=== PATIENT | female | born 1950 | race Caucasian/White ===

== ENCOUNTER 2024-09-07 12:08 | Emergency (ER) | payer MEDICARE, OTHER ==
[2024-09-07 12:16] VITALS: TEMP 98.8
--- NOTE | 2024-09-07 12:34 | ED ---
General Adult HPI - General Chief complaint: Anxiety Stated complaint: "Everything and anything" Time Seen by Provider: 09/07/24 12:15 Source: patient, EMS Mode of arrival: EMS Limitations: no limitations - History of Present Illness Initial comments: Patient is a 73-year-old female presenting to the emergency department for "everything and anything ". Patient states she has not been feeling well for few days. Patient has been having cramps of her legs. Patient states that maybe a little bit swollen. Patient has pain all over. Patient is tearful. Patient is concerned because of numbness and tingling all over. Patient also has concerns that they are changing her medications. - Related Data Previous Rx's Medication Instructions Recorded Cyclobenzaprine [Flexeril] 10 mg PO TID PRN #12 tablet 09/07/24 Allergies Allergy/AdvReac Type Severity Reaction Status Date / Time Sulfa (Sulfonamide AdvReac Rash/Hives Verified 09/07/24 12:18 Antibiotics) Review of Systems ROS Statement: Those systems with pertinent positive or pertinent negative responses have been documented in the HPI. ROS Other: All systems not noted in ROS Statement are negative. Constitutional: Denies: fever Eyes: Denies: eye pain Respiratory: Reports: dyspnea Musculoskeletal: Reports: as per HPI ( pain everywhere) Psychiatric: Reports: anxiety Past Medical History Past Medical History: Hypertension Past Surgical History: Orthopedic Surgery Past Psychological History: Anxiety Smoking Status: Never smoker Past Alcohol Use History: None Reported Past Drug Use History: None Reported General Exam Limitations: no limitations General appearance: alert, anxious Head exam: Present: normocephalic Eye exam: Present: normal appearance Neck exam: Present: normal inspection Respiratory exam: Present: normal lung sounds bilaterally Cardiovascular Exam: Present: regular rate, normal rhythm GI/Abdominal exam: Present: soft. Absent: tenderness Extremities exam: Present: pedal edema. Absent: calf tenderness Neurological exam: Present: alert, oriented X3. Absent: motor sensory deficit Psychiatric exam: Present: anxious Skin exam: Present: normal color Course Vital Signs 09/07/24 09/07/24 09/07/24 12:12 12:18 12:42 Temperature 98.8 F Pulse Rate 68 57 L Respiratory 18 26 H 18 Rate Blood Pressure 190/103 182/89 O2 Sat by Pulse 98 99 Oximetry 09/07/24 14:58 Temperature Pulse Rate 59 L Respiratory 16 Rate Blood Pressure 184/83 O2 Sat by Pulse 99 Oximetry EKG Findings - EKG Results: EKG: interpreted by ERMD, sinus rhythm, normal axis, normal QRS, normal ST/T EKG shows: bradycardia Medical Decision Making - Medical Decision Making Was pt. sent in by a medical professional or institution (, RAFAEL, PUMPER GAUGER APPRENTICE, urgent care, hospital, or halfway...) When possible be specific @ -No Did you speak to anyone other than the patient for history (EMS, parent, family, police, friend...)? What history was obtained from this source @ -No Did you review nursing and triage notes (agree or disagree)? Why? @ -I reviewed and agree with nursing and triage notes Were old charts reviewed (outside hosp., previous admission, EMS record, old EKG, old radiological studies, urgent care reports/EKG's, halfway records)? Report findings @ -No old charts were reviewed Differential Diagnosis (chest pain, altered mental status, abdominal pain women, abdominal pain men, vaginal bleeding, weakness, fever, dyspnea, syncope, headache, dizziness, GI bleed, back pain, seizure, CVA, palpatations, mental health, musculoskeletal)? @ -Differential Dyspnea: Coronary syndrome, arrhythmia, tamponade, asthma, COPD, pulmonary embolism, pneumonia, pneumothorax, pulmonary effusion, anaphylaxis, diabetic ketoacidosis, flailed chest, pulmonary contusion, diaphragmatic rupture, anemia, neuromuscular, this is not meant to be an all-inclusive list. EKG interpreted by me (3pts min.). @ -As above X-rays interpreted by me (1pt min.). @ -Chest x-ray shows possibly enlarged lymph nodes CT interpreted by me (1pt min.). @ -CT of the chest without acute abnormality. No pulmonary embolism U/S interpreted by me (1pt. min.). @ -Ultrasound negative for DVT What testing was considered but not performed or refused? (CT, X-rays, U/S, labs)? Why? @ -None What meds were considered but not given or refused? Why? @ -None Did you discuss the management of the patient with other professionals (professionals i.e. RAFAEL Mckeon, PUMPER GAUGER APPRENTICE, lab, RT, psych nurse, social sciences lecturer, clinical data abstractor, teacher, precinct commanding officer, medical case worker)? Give summary @ -No Was smoking cessation discussed for >3mins.? @ -No Was critical care preformed (if so, how long)? @ -No Were there social determinants of health that impacted care today? How? (Homelessness, low income, unemployed, alcoholism, drug addiction, trans portation, low edu. Level, literacy, decrease access to med. care, correction, rehab)? @ -No Was there de-escalation of care discussed even if they declined (Discuss DNR or withdrawal of care, Hospice)? DNR status @ -No What co-morbidities impacted this encounter? (DM, HTN, Smoking, COPD, CAD, Cancer, CVA, ARF, Chemo, Hep., AIDS, mental health diagnosis, sleep apnea, morbid obesity)? @ -None Was patient admitted / discharged? Hospital course, mention meds given and route, prescriptions, significant lab abnormalities, going to OR and other pertinent info. @ -Patient presents with multiple complaints. Patient has difficulty describing her complaints.. Patient mostly complains of cramping and tingling of her legs. Evaluation unremarkable. Patient symptom-free with Ativan except still feels anxious. Patient requests Ativan to take home with her and is receptive to muscle relaxer as well. Patient is updated on results and need for close follow-up. Undiagnosed new problem with uncertain prognosis? @ -No Drug Therapy requiring intensive monitoring for toxicity (Heparin, Nitro, Insulin, Cardizem)? @ -No Were any procedures done? @ -No Diagnosis/symptom? @ -Leg cramping Acute, or Chronic, or Acute on Chronic? @ -Acute Uncomplicated (without systemic symptoms) or Complicated (systemic symptoms)? @ -Complicated with anxiety Side effects of treatment? @ -No Exacerbation, Progression, or Severe Exacerbation? @ -No Poses a threat to life or bodily function? How? (Chest pain, [place], [place], pneumonia, PE, COPD, DKA, ARF, appy, cholecystitis, CVA, Diverticulitis, Homicidal, Suicidal, threat to staff... and all critical care pts) @ -No - Lab Data Result diagrams: 09/07/24 12:29 09/07/24 12:32 Lab Results 09/07/24 09/07/24 09/07/24 Range/Units 12:29 12:29 12:32 WBC 8.51 (4.50-10.00) 10*3/uL RBC 3.98 L (4.10-5.20) 10*6/uL Hgb 12.8 (12.0-15.0) g/dL Hct 37.4 (37.2-46.3) % MCV 94.0 (80.0-97.0) fL MCH 32.2 H (27.0-32.0) pg MCHC 34.2 (32.0-37.0) g/dL Plt Count 158 (140-440) 10*3/uL MPV 9.4 L (9.5-12.2) fL Immature Gran % (Auto) 0.4 % Neutrophils % 71.2 % Lymphocytes % 19.7 % Monocytes % 7.6 % Eosinophils % 0.9 % Basophils % 0.2 % Immature Gran # 0.03 (0.00-0.04) 10*3/uL Neutrophils # 6.05 (1.80-7.70) 10*3/uL Lymphocytes # 1.68 (0.90-5.00) 10*3/uL Monocytes # 0.65 (0.20-1.00) 10*3/uL Eosinophils # 0.08 (0.04-0.35) 10*3/uL Basophils # 0.02 (0.00-0.10) 10*3/uL PT 10.8 (10.0-12.5) sec INR 1.0 (<1.2) APTT 23.7 (22.0-30.0) sec D-Dimer 1.26 H (<0.60) mg/L FEU Sodium 142 (137-145) mmol/L Potassium 3.7 (3.5-5.1) mmol/L Chloride 110 H (98-107) mmol/L Carbon Dioxide 22 (22-30) mmol/L Anion Gap 10 mmol/L BUN 22 H (7-17) mg/dL Creatinine 1.02 (0.52-1.04) mg/dL Est GFR (CKD-EPI)AfAm 63 (>60 ml/min/1.73 sqM) Est GFR (CKD-EPI)NonAf 55 (>60 ml/min/1.73 sqM) Glucose 94 (74-99) mg/dL Plasma Lactic Acid Raghav (0.7-2.0) mmol/L Calcium 10.3 H (8.4-10.2) mg/dL Magnesium 2.1 (1.6-2.3) mg/dL Total Bilirubin 0.7 (0.2-1.3) mg/dL AST 51 H (14-36) U/L ALT 34 (4-34) U/L Alkaline Phosphatase 78 (38-126) U/L Troponin I (0.000-0.034) ng/mL NT-Pro-B Natriuret Pep 161 pg/mL Total Protein 7.5 (6.3-8.2) g/dL Albumin 4.4 (3.5-5.0) g/dL 09/07/24 09/07/24 Range/Units 12:32 12:39 WBC (4.50-10.00) 10*3/uL RBC (4.10-5.20) 10*6/uL Hgb (12.0-15.0) g/dL Hct (37.2-46.3) % MCV (80.0-97.0) fL MCH (27.0-32.0) pg MCHC (32.0-37.0) g/dL Plt Count (140-440) 10*3/uL MPV (9.5-12.2) fL Immature Gran % (Auto) % Neutrophils % % Lymphocytes % % Monocytes % % Eosinophils % % Basophils % % Immature Gran # (0.00-0.04) 10*3/uL Neutrophils # (1.80-7.70) 10*3/uL Lymphocytes # (0.90-5.00) 10*3/uL Monocytes # (0.20-1.00) 10*3/uL Eosinophils # (0.04-0.35) 10*3/uL Basophils # (0.00-0.10) 10*3/uL PT (10.0-12.5) sec INR (<1.2) APTT (22.0-30.0) sec D-Dimer (<0.60) mg/L FEU Sodium (137-145) mmol/L Potassium (3.5-5.1) mmol/L Chloride (98-107) mmol/L Carbon Dioxide (22-30) mmol/L Anion Gap mmol/L BUN (7-17) mg/dL Creatinine (0.52-1.04) mg/dL Est GFR (CKD-EPI)AfAm (>60 ml/min/1.73 sqM) Est GFR (CKD-EPI)NonAf (>60 ml/min/1.73 sqM) Glucose (74-99) mg/dL Plasma Lactic Acid Raghav 1.6 (0.7-2.0) mmol/L Calcium (8.4-10.2) mg/dL Magnesium (1.6-2.3) mg/dL Total Bilirubin (0.2-1.3) mg/dL AST (14-36) U/L ALT (4-34) U/L Alkaline Phosphatase (38-126) U/L Troponin I <0.012 (0.000-0.034) ng/mL NT-Pro-B Natriuret Pep pg/mL Total Protein (6.3-8.2) g/dL Albumin (3.5-5.0) g/dL Disposition Clinical Impression: Leg cramps Disposition: HOME SELF-CARE Condition: Stable Instructions (If sedation given, give patient instructions): Generalized Anxiety Disorder (ED), Leg Cramps (ED) Additional Instructions: Please do follow-up with your primary care physician in the next day or 2 for recheck. Please also follow-up with your psychiatrist in the next day or 2 for recheck. Ativan provided you to take home. Please cut this in half and do not take more than one half every 12 hours. Prescription for muscle laxer sent to pharmacy. Prescriptions: Cyclobenzaprine [Flexeril] 10 mg PO TID PRN #12 tablet PRN Reason: Pain Is patient prescribed a controlled substance at d/c from ED?: No Referrals: Darrel Rios [Primary Care Provider] - 1-2 days Time of Disposition: 15:25
[2024-09-07 12:39] LABS: Basophils # (A) 0.02 10*3/uL (0.00-0.10); Basophils % (A) 0.2 %; Eosinophils # (A) 0.08 10*3/uL (0.04-0.35); Eosinophils % (A) 0.9 %; HCT 37.4 % (37.2-46.3); HGB 12.8 g/dL (12.0-15.0); Lymphocytes # (A) 1.68 10*3/uL (0.90-5.00); Lymphocytes % (A) 19.7 %; MCH 32.2 pg (27.0-32.0); MCHC 34.2 g/dL (32.0-37.0); Mean Platelet Volume 9.4 fL (9.5-12.2); Monocytes # (A) 0.65 10*3/uL (0.20-1.00); Monocytes % (A) 7.6 %; Neutrophils # (A) 6.05 10*3/uL (1.80-7.70); Neutrophils % (A) 71.2 %; Platelet Count 158 10*3/uL (140-440); RBC 3.98 10*6/uL (4.10-5.20); RDW 12.5 % (11.5-14.5); WBC 8.51 10*3/uL (4.50-10.00)
[2024-09-07] MEDS: LORazepam 1 MG/0.5 ML VIAL IV STA (12:40)
[2024-09-07 12:53] LABS: ALT 34 U/L (4-34); AST 51 U/L (14-36); African American GFR (CKD) 63 (>60 ml/min/1.73 sqM); Albumin 4.4 g/dL (3.5-5.0); Alkaline Phosphatase 78 U/L (38-126); Anion Gap 10 mmol/L; Blood Urea Nitrogen 22 mg/dL (7-17); Calcium 10.3 mg/dL (8.4-10.2); Carbon Dioxide 22 mmol/L (22-30); Chloride 110 mmol/L (98-107); Glucose 94 mg/dL (74-99); Magnesium 2.1 mg/dL (1.6-2.3); Non-African American GFR(CKD) 55 (>60 ml/min/1.73 sqM); Potassium 3.7 mmol/L (3.5-5.1); Sodium 142 mmol/L (137-145); Total Bilirubin 0.7 mg/dL (0.2-1.3); Total Protein 7.5 g/dL (6.3-8.2)
[2024-09-07 12:54] LABS: Partial Thromboplastin Time 23.7 sec (22.0-30.0); Prothrombin Time 10.8 sec (10.0-12.5)
[2024-09-07 13:02] LABS: NT-Pro-B-Type Natriuretic Pept 161 pg/mL
--- NOTE | 2024-09-07 13:16 | XR ---
EXAMINATION TYPE: XR chest 2V DATE OF EXAM: 09/07/2024 1:10 PM COMPARISON: None CLINICAL INDICATION: Female, 73 years old with history of difficulty breathing; [facility] TECHNIQUE: XR chest 2V Frontal and lateral views of the chest. FINDINGS: Lungs/Pleura: There is no evidence of pleural effusion, focal consolidation, or pneumothorax. There is fullness of the bilateral perihilar regions confirmed on lateral view. Pulmonary vascularity: Unremarkable. Heart/mediastinum: Cardiomediastinal silhouette is unremarkable. Musculoskeletal: No acute osseous pathology. There is fixation hardware in the lower cervical spine. IMPRESSION: Fullness over the hilar regions bilaterally and on lateral view attention on subsequent CT chest for lymphadenopathy versus prominent vessels. [facility], , 09/07/2024 1:14 PM
--- NOTE | 2024-09-07 13:50 | CT ---
EXAMINATION TYPE: CT angio chest DATE OF EXAM: 09/07/2024 COMPARISON: None CLINICAL INDICATION: Female, 73 years old with history of rita; [facility], rita TECHNIQUE: CTA scan of the thorax is performed with IV Contrast, patient injected with 80 mL of Isovue 370, pulm onary embolism protocol. MIP images are created and reviewed. CT DLP: 356.[address] CTDI: mGy Automated exposure control for dose reduction was used. FINDINGS: There are a few, approximately 3, scattered sub-5 mm pulmonary nodules. There is no airspace consolidation or abnormal interstitial density. There is no pleural effusion or pneumothorax. The great vessels the chest are normal. There is no filling defect within the pulmonary arterial circ ulation to suggest pulmonary embolism. There is no thoracic aortic aneurysm There is no mediastinal, hilar or axillary adenopathy. Limited scanning through the upper abdomen reveals no gross abnormality. There are no focal osseous lesions. IMPRESSION: 1. No pulmonary emphysema. 2. No suspicious lung mass or nodule. A few scattered sub-5 mm nodules. 3. No acute cardiopulmonary disease. [facility], , 09/07/2024 1:48 PM
--- NOTE | 2024-09-07 14:52 | US ---
EXAMINATION TYPE: US venous doppler duplex LE BI DATE OF EXAM: 09/07/2024 12:32 PM COMPARISON: NONE CLINICAL INDICATION: Female, 73 years old with history of swelling; cramping in bilateral lateral leg s., Pain TECHNIQUE: The lower extremity deep venous system is examined utilizing real time linear array sonog pravin with graded compression, color doppler sonography, and spectral doppler. SIDE PERFORMED: Bilateral FINDINGS: VESSELS IMAGED: Common Femoral Vein Deep Femoral Vein Greater Saphenous Vein * Femoral Vein Popliteal Vein Small Saphenous Vein * Proximal Calf Veins (* superficial vessels) Right Leg: No evidence for DVT, Color Doppler imaging shows patency of the vessels. Spectral wavefor ms are within normal limits. Left Leg: No evidence for DVT, Color Doppler imaging shows patency of the vessels. Spectral waveform s are within normal limits. IMPRESSION: No ultrasound evidence for deep venous thrombosis. [facility], , 09/07/2024 2:50 PM
[2024-09-07 14:59] VITALS: RESP 16
[2024-09-07] MEDS: LORazepam 1 MG TAB PO STA (15:34)
[2024-09-07 15:42] VITALS: BP 184/87; PULSE 66
== END 2024-09-07 15:50 | disposition home or self-care (01) ==
LOC: EC 12:08
DX: G47.62 Sleep related leg cramps (principal); R00.1 Bradycardia, unspecified; Z88.2 Allergy status to sulfonamides
CPT/HCPCS: 36415; 93005; 85379; 83880; 80053; 83605; 83735; 84484; 85025; 85610; 85730; 71046; 93970; 71275; 99284; 96374; J2060; Q9967

== ENCOUNTER 2024-09-08 11:31 | Observation (INO) | payer MEDICARE, OTHER ==
--- NOTE | 2024-09-08 12:13 | ED ---
General Adult HPI - General Chief complaint: Chest Pain Stated complaint: Chest Pain Time Seen by Provider: 09/08/24 11:41 Source: patient, EMS Mode of arrival: EMS Limitations: no limitations - History of Present Illness Initial comments: Dictation was produced using [employer] dictation software. please excuse any grammatical, word or spelling errors. Chief Complaint: 73-year-old female psychiatric history presents to the ER for chest pain History of Present Illness: Patient 73-year-old female presents to the emergency department chest pressure. She was at her clinic appointment when all of a sudden she started to have some substernal chest pain. States it is like an ache. Nonradiating states she has extensive family history of coronary artery disease. The ROS documented in this emergency department record has been reviewed and confirmed by me. Those systems with pertinent positive or negative responses have been documented in the HPI. All other systems are other negative and/or noncontributory. - Related Data Previous Rx's Medication Instructions Recorded Cyclobenzaprine [Flexeril] 10 mg PO TID PRN #12 tablet 09/07/24 Allergies Allergy/AdvReac Type Severity Reaction Status Date / Time Sulfa (Sulfonamide AdvReac Rash/Hives Verified 09/08/24 11:39 Antibiotics) Review of Systems ROS Statement: Those systems with pertinent positive or pertinent negative responses have been documented in the HPI. ROS Other: All systems not noted in ROS Statement are negative. Past Medical History Past Medical History: Hypertension Past Surgical History: Orthopedic Surgery Past Psychological History: Anxiety Smoking Status: Never smoker Past Alcohol Use History: None Reported Past Drug Use History: None Reported General Exam - General Exam Comments Initial Comments: PHYSICAL EXAM: General Impression: Alert and oriented x3, not in acute distress HEENT: Normocephalic atraumatic, extra-ocular movements intact, pupils equal and reactive to light bilaterally, mucous membranes moist. Cardiovascular: Heart regular rate and rhythm Chest: Able to complete full sentences, no retractions, no tachypnea Abdomen: abdomen soft, non-tender, non-distended, no organomegaly Musculoskeletal: Pulses present and equal in all extremities, no peripheral edema Motor: no focal deficits noted Neurological: CN II-XII grossly intact, no focal motor or sensory deficits noted Skin: Intact with no visualized rashes Psych: Normal affect and mood Limitations: no limitations Course Vital Signs 06/09/08/24 09/08/24 11:35 12:36 14:07 Temperature 98.1 F Pulse Rate 56 L 60 61 Respiratory 22 16 18 Rate Blood Pressure 192/97 161/79 150/73 O2 Sat by Pulse 100 99 99 Oximetry EKG Findings - EKG Comments: EKG Findings:: My EKG interpretation: Ventricular rate 55, sinus bradycardia, [place] 162, QRS 80, QTc 411. No [place] prolongation, no QTC prolongation, no ST or T-wave changes noted. Overall, this EKG is unremarkable Medical Decision Making - Medical Decision Making Was pt. sent in by a medical professional or institution (, PA, RETURNED GOODS RECEIVING CLERK, urgent care, hospital, or custodial...) When possible be specific @ -No Did you speak to anyone other than the patient for history (EMS, parent, family, police, friend...)? What history was obtained from this source @ -No Did you review nursing and triage notes (agree or disagree)? Why? @ -I reviewed and agree with nursing and triage notes Were old charts reviewed (outside hosp., previous admission, EMS record, old EKG, old radiological studies, urgent care reports/EKG's, custodial records)? Report findings @ -No old charts were reviewed Differential Diagnosis (chest pain, altered mental status, abdominal pain women, abdominal pain men, vaginal bleeding, musculoskeletal, weakness, fever, dyspnea, syncope, headache, dizziness, GI bleed, back pain, seizure, CVA, palpatations, mental health)? @ -Differential Chest Pain: Stable Angina, Unstable Angina, STEMI, NSTEMI Aortic Dissection, Pneumothorax, Musculoskeletal, Esophageal Spasm GERD, Cholecystitis, Pancreatitis, Zoster, this is not meant to be an all-inclusive list. EKG interpreted by me (3pts min.). @ -None done X-rays interpreted by me (1pt min.). @ -Chest x-ray shows no acute processes CT interpreted by me (1pt min.). @ -None done U/S interpreted by me (1pt. min.). @ -None done What testing was considered but not performed or refused? (CT, X-rays, U/S, labs)? Why? @ -None What meds were considered but not given or refused? Why? @ -None Was smoking cessation discussed for >3mins.? @ -No Were there social determinants of health that impacted care today? How? (Homelessness, low income, unemployed, alcoholism, drug addiction, transportation, low edu. Level, literacy, decrease access to med. care, usp, rehab)? @ -No Was there de-escalation of care discussed even if they declined (Discuss DNR or withdrawal of care, Hospice)? DNR status @ -No What co-morbidities impacted this encounter? (DM, HTN, Smoking, COPD, CAD, Cancer, CVA, ARF, Chemo, Hep., AIDS, mental health diagnosis, sleep apnea, morbid obesity)? @ -None Was patient admitted / discharged? Hospital course, mention meds given and route, prescriptions, significant lab abnormalities, going to OR and other pertinent info. @ -73-year-old female presents with chest pain concerning for acute coronary syndrome. Vital signs upon arrival are within acceptable limits. Laboratory evaluation is unremarkable. Troponin is negative. EKG shows no ischemic changes. X-ray is nonacute. Patient be admitted observation consultation to cardiology. Case discussed with hospitalist for admission Did you discuss the management of the patient with other professionals (professionals i.e. , PA, RETURNED GOODS RECEIVING CLERK, lab, RT, psych nurse, social work lecturer, bonbon dipper, teacher, correctional officer lieutenant, rn case mgr)? Give summary @ -No Was critical care preformed (if so, how long)? @ -No Undiagnosed new problem with uncertain prognosis? @ -No Drug Therapy requiring intensive monitoring for toxicity (Heparin, Nitro, Insulin, Cardizem)? @ -No Were any procedures done? @ -No Diagnosis/symptom? Acute, or Chronic, or Acute on Chronic? Uncomplicated (without systemic symptoms) or Complicated (systemic symptoms)? @ -Acute coronary syndrome Side effects of treatment? @ -No Exacerbation, Progression, or Severe Exacerbation? @ -No Poses a threat to life or bodily function? How? (Chest pain, [place], [place], pneumonia, PE, COPD, DKA, ARF, appy, cholecystitis, CVA, Diverticulitis, Homicidal, Suicidal, threat to staff... and all critical care pts) @ -yes - Lab Data Result diagrams: 09/08/24 12:13 09/08/24 12:13 Lab Results 09/08/24 09/08/24 09/08/24 Range/Units 12:13 12:13 12:13 WBC 10.04 H (4.50-10.00) 10*3/uL RBC 3.77 L (4.10-5.20) 10*6/uL Hgb 12.2 (12.0-15.0) g/dL Hct 35.9 L (37.2-46.3) % MCV 95.2 (80.0-97.0) fL MCH 32.4 H (27.0-32.0) pg MCHC 34.0 (32.0-37.0) g/dL Plt Count 176 (140-440) 10*3/uL MPV 10.5 (9.5-12.2) fL Immature Gran % (Auto) 0.3 % Neutrophils % 71.6 % Lymphocytes % 18.9 % Monocytes % 7.5 % Eosinophils % 1.3 % Basophils % 0.4 % Immature Gran # 0.03 (0.00-0.04) 10*3/uL Neutrophils # 7.19 (1.80-7.70) 10*3/uL Lymphocytes # 1.90 (0.90-5.00) 10*3/uL Monocytes # 0.75 (0.20-1.00) 10*3/uL Eosinophils # 0.13 (0.04-0.35) 10*3/uL Basophils # 0.04 (0.00-0.10) 10*3/uL PT 10.7 (10.0-12.5) sec INR 1.0 (<1.2) APTT 23.6 (22.0-30.0) sec Sodium 142 (137-145) mmol/L Potassium 3.8 (3.5-5.1) mmol/L Chloride 110 H (98-107) mmol/L Carbon Dioxide 19 L (22-30) mmol/L Anion Gap 13 mmol/L BUN 27 H (7-17) mg/dL Creatinine 1.15 H (0.52-1.04) mg/dL Est GFR (CKD-EPI)AfAm 55 (>60 ml/min/1.73 sqM) Est GFR (CKD-EPI)NonAf 47 (>60 ml/min/1.73 sqM) Glucose 95 (74-99) mg/dL Calcium 9.9 (8.4-10.2) mg/dL Magnesium 2.2 (1.6-2.3) mg/dL Total Bilirubin 0.5 (0.2-1.3) mg/dL AST 49 H (14-36) U/L ALT 37 H (4-34) U/L Alkaline Phosphatase 72 (38-126) U/L Troponin I (0.000-0.034) ng/mL Total Protein 7.8 (6.3-8.2) g/dL Albumin 4.6 (3.5-5.0) g/dL 09/08/24 Range/Units 12:13 WBC (4.50-10.00) 10*3/uL RBC (4.10-5.20) 10*6/uL Hgb (12.0-15.0) g/dL Hct (37.2-46.3) % MCV (80.0-97.0) fL MCH (27.0-32.0) pg MCHC (32.0-37.0) g/dL Plt Count (140-440) 10*3/uL MPV (9.5-12.2) fL Immature Gran % (Auto) % Neutrophils % % Lymphocytes % % Monocytes % % Eosinophils % % Basophils % % Immature Gran # (0.00-0.04) 10*3/uL Neutrophils # (1.80-7.70) 10*3/uL Lymphocytes # (0.90-5.00) 10*3/uL Monocytes # (0.20-1.00) 10*3/uL Eosinophils # (0.04-0.35) 10*3/uL Basophils # (0.00-0.10) 10*3/uL PT (10.0-12.5) sec INR (<1.2) APTT (22.0-30.0) sec Sodium (137-145) mmol/L Potassium (3.5-5.1) mmol/L Chloride (98-107) mmol/L Carbon Dioxide (22-30) mmol/L Anion Gap mmol/L BUN (7-17) mg/dL Creatinine (0.52-1.04) mg/dL Est GFR (CKD-EPI)AfAm (>60 ml/min/1.73 sqM) Est GFR (CKD-EPI)NonAf (>60 ml/min/1.73 sqM) Glucose (74-99) mg/dL Calcium (8.4-10.2) mg/dL Magnesium (1.6-2.3) mg/dL Total Bilirubin (0.2-1.3) mg/dL AST (14-36) U/L ALT (4-34) U/L Alkaline Phosphatase (38-126) U/L Troponin I <0.012 (0.000-0.034) ng/mL Total Protein (6.3-8.2) g/dL Albumin (3.5-5.0) g/dL Disposition Clinical Impression: ACS (acute coronary syndrome) Disposition: ADMITTED IP TO THIS HOSP Condition: Fair Referrals: Darrel Rios [Primary Care Provider] - 1-2 days Decision Time: 14:08
[2024-09-08 12:23] LABS: Basophils # (A) 0.04 10*3/uL (0.00-0.10); Basophils % (A) 0.4 %; Eosinophils # (A) 0.13 10*3/uL (0.04-0.35); Eosinophils % (A) 1.3 %; HCT 35.9 % (37.2-46.3); HGB 12.2 g/dL (12.0-15.0); Lymphocytes % (A) 18.9 %; MCH 32.4 pg (27.0-32.0); MCV 95.2 fL (80.0-97.0); Mean Platelet Volume 10.5 fL (9.5-12.2); Monocytes # (A) 0.75 10*3/uL (0.20-1.00); Monocytes % (A) 7.5 %; Neutrophils # (A) 7.19 10*3/uL (1.80-7.70); Neutrophils % (A) 71.6 %; Platelet Count 176 10*3/uL (140-440); RBC 3.77 10*6/uL (4.10-5.20); RDW 12.3 % (11.5-14.5); WBC 10.04 10*3/uL (4.50-10.00)
[2024-09-08 12:34] LABS: ALT 37 U/L (4-34); AST 49 U/L (14-36); African American GFR (CKD) 55 (>60 ml/min/1.73 sqM); Albumin 4.6 g/dL (3.5-5.0); Alkaline Phosphatase 72 U/L (38-126); Anion Gap 13 mmol/L; Blood Urea Nitrogen 27 mg/dL (7-17); Calcium 9.9 mg/dL (8.4-10.2); Carbon Dioxide 19 mmol/L (22-30); Chloride 110 mmol/L (98-107); Glucose 95 mg/dL (74-99); Magnesium 2.2 mg/dL (1.6-2.3); Non-African American GFR(CKD) 47 (>60 ml/min/1.73 sqM); Potassium 3.8 mmol/L (3.5-5.1); Sodium 142 mmol/L (137-145); Total Bilirubin 0.5 mg/dL (0.2-1.3); Total Protein 7.8 g/dL (6.3-8.2)
[2024-09-08 12:35] LABS: Partial Thromboplastin Time 23.6 sec (22.0-30.0); Prothrombin Time 10.7 sec (10.0-12.5)
[2024-09-08] MEDS: ASPIRIN 81 MG PO STA (12:41)
[2024-09-08] MEDS: NITROGLYCERIN SL TABS 0.4 MG TAB SUBLINGUAL STA (12:43)
--- NOTE | 2024-09-08 12:57 | XR ---
EXAMINATION TYPE: XR chest 2V DATE OF EXAM: 09/08/2024 12:53 PM COMPARISON: Chest radiographs from 09/07/2024. CLINICAL INDICATION: Female, 73 years old with history of Chest Pain; [facility] TECHNIQUE: XR chest 2V Frontal and lateral views of the chest. FINDINGS: Lungs/Pleura: There is no evidence of pleural effusion, focal consolidation, or pneumothorax. Pulmonary vascularity: Unremarkable. Heart/mediastinum: Cardiomediastinal silhouette is unremarkable. Musculoskeletal: No acute osseous pathology. There is fixation hardware in the lower cervical spine. IMPRESSION: No acute cardiopulmonary disease/process. [facility], , 09/08/2024 12:55 PM
[2024-09-08] MEDS ORDERED: NITROGLYCERIN SL TABS 0.4 MG TAB SUBLINGUAL PRN (14:06)
[2024-09-08] MEDS ORDERED: FLUTICASONE NASAL 50MCG/SPRAY 16GM BTL EA NOSTRIL PRN (19:09)
[2024-09-08] MEDS: clonazePAM 1 MG TAB PO PRN (21:54)
[2024-09-08] MEDS: BRIMONIDINE TARTRATE 0.2% DROPS 5 ML BTL BOTH EYES SCH (21:54)
[2024-09-08] MEDS: TOPIRAMATE 100 MG TAB PO SCH (21:54)
[2024-09-08] MEDS: ATORVASTATIN 20 MG TAB PO SCH (21:54)
[2024-09-09] MEDS: CYCLOBENZAPRINE 10 MG TAB PO PRN (01:08)
[2024-09-09] MEDS: LEVOTHYROXINE 75 MCG TAB PO SCH (06:20)
[2024-09-09] MEDS: LEVOTHYROXINE 100 MCG TAB PO SCH (06:20)
[2024-09-09 07:16] LABS: Appearance,Urine Clear (Clear); Bilirubin,Urine Negative (Negative); Blood,Urine Negative (Negative); Color,Urine Colorless; Glucose,Urine (UA) Negative (Negative); Ketones,Urine Negative (Negative); Leukocyte Esterase,Urine Negative (Negative); Nitrite,Urine Negative (Negative); Protein,Urine Negative (Negative); Specific Gravity,Urine 1.003 (1.001-1.035); Urobilinogen,Urine <2.0 mg/dL (<2.0)
[2024-09-09 07:31] VITALS: TEMP 98.1
[2024-09-09] MEDS: ASPIRIN 81 MG PO SCH (09:37)
[2024-09-09] MEDS: MAGNESIUM OXIDE 400 MG TAB PO SCH (09:38)
[2024-09-09] MEDS: NIFEdipine XL 30 MG TAB.ER.24 PO SCH (09:38)
[2024-09-09] MEDS: Linaclotide [Linzess] 72 MCG Capsule PO SCH (09:39)
[2024-09-09] MEDS: ASPIRIN 325 MG TAB PO SCH (09:40)
[2024-09-09 10:21] LABS: Chol/HDL Ratio 2.97 Ratio; LDL Cholesterol,Calculated 101.8 mg/dL (0.0-131.0); VLDL Calculation 13.74 mg/dL (5.00-40.00)
[2024-09-09] MEDS: SENNOSIDES 8.6 MG TAB PO PRN (11:25)
[2024-09-09 14:35] VITALS: BP 190/78; PULSE 71; RESP 20
--- NOTE | 2024-09-09 21:01 | P.CRDCN ---
History of Present Illness Consult date: 09/09/24 History of present illness: HISTORY OF PRESENTING ILLNESS: 73-year-old female was referred to the [facility] ER when she was being evaluated in her physician's office because of elevated blood pressure. She was also noticing to have some substernal chest heaviness symptoms. She is also endorsing some nonspecific symptoms of cramping in the legs, numbness in her hands. BP 123/70, heart rate 66 Hb 12, BUN 27, creatinine 1.15, troponin x 3 negative, LDL 101, TG 68, total cholesterol 174, HDL 58 REVIEW OF SYSTEMS: 14 point review of system is negative except what is mentioned above in HPI. PHYSICAL EXAMINATION: Neck: Brisk carotid upstroke, no jugular venous distention. Lungs: Clear to auscultation. Heart: Regular rate and rhythm, S1-S2, , no murmur or rub. Abdomen: Soft nontender, positive bowel sounds. Extremities: No edema, intact distal pulses. Neuro: Alert, oritented, no focal deficits. Detailed neuro exam was not performed. ASSESSMENT: # Essential hypertension, controlled # Atypical chest pain, rule out of ACS # Mild dyslipidemia # Anxiety # Leg cramping PLAN: Patient is not willing to stay until Wednesday to get her echo and stress test done Would recommend her to get her echo and stress test on outpatient basis. Recommend outpatient follow-up with Dr. Anderson. I spoke to the patient's daughter , I explained her everything in the detail and gave her the option of staying in the hospital to get testing done Patient does seem to have some psychiatric disorder and has a flat affect. She does get agitated easily and I suspect that her blood pressure was higher in doctors office when she gets worked up. Her blood pressure during hospital when she was resting comfortably was within normal limits. Therefore I will not increase her antihypertensives and would recommend her to check it at home and show the blood pressure log. Continue nifedipine XL 30 mg daily. She is also on aspirin and Lipitor which will continue. Recommend to have a friend or family with her when she is visiting her doctors appointment. Jose Elias Anderson MD, FACC, RPVI Thank you for allowing [facility] to participate in this patient's care. Feel free to reach out in case of any followup questions. Past Medical History Past Medical History: Hypertension History of Any Multi-Drug Resistant Organisms: None Reported Past Surgical History: Orthopedic Surgery Past Anesthesia/Blood Transfusion Reactions: No Reported Reaction Past Psychological History: Anxiety Smoking Status: Never smoker Past Alcohol Use History: None Reported Past Drug Use History: None Reported Medications and Allergies Home Medications Medication Instructions Recorded Confirmed Type Aspirin EC [Ecotrin Low Dose] 81 mg PO DAILY 09/08/24 09/08/24 History Atorvastatin [Lipitor] 20 mg PO HS 09/08/24 09/08/24 History Brimonidine Tartrate [Alphagan P 1 drop BOTH EYES BID 09/08/24 09/08/24 History 0.2% Ophth Soln] Cyclobenzaprine [Flexeril] 10 mg PO DIRECTED PRN 09/08/24 09/08/24 History Fluticasone Nasal [place] [Flonase 2 spray EA NOSTRIL BID PRN 09/08/24 09/08/24 History Nasal [place]] Levothyroxine Sodium [Synthroid] 175 mcg PO DAILY 09/08/24 09/08/24 History Linaclotide [Linzess] 72 mcg PO DIRECTED 09/08/24 09/08/24 History Lurasidone [Latuda] 40 mg PO HS 09/08/24 09/08/24 History Magnesium Oxide [Mag-Ox] 400 mg PO DAILY 09/08/24 09/08/24 History Multivit-Min/FA/Lycopen/Lutein 1 tab PO DAILY 09/08/24 09/08/24 History [Centrum Silver Tablet] NIFEdipine XL [Procardia XL] 30 mg PO DAILY 09/08/24 09/08/24 History Topiramate 200 mg PO BID 09/08/24 09/08/24 History clonazePAM 2 mg PO HS 09/08/24 09/08/24 History Allergies Allergy/AdvReac Type Severity Reaction Status Date / Time Sulfa (Sulfonamide AdvReac Rash/Hives Verified 09/08/24 15:11 Antibiotics) Physical Exam Vitals: Vital Signs Temp Pulse Resp BP Pulse Ox 09/09/24 14:34 71 20 190/78 99 09/09/24 07:00 98.1 F 54 L 16 123/70 99 09/09/24 02:00 98.0 F 66 17 150/76 100 Intake and Output 09/09/24 09/09/24 09/09/24 06:59 14:59 22:59 Other: Voiding Method Toilet # Voids 2 3 Results 09/08/24 12:13 09/08/24 12:13 Lipids 09/08/24 Range/Units 12:13 Triglycerides 68.70 (0.00-149.00) mg/dL Cholesterol 174.00 (0.00-200.00) mg/dL HDL Cholesterol 58.50 (40.00-60.00) mg/dL Cholesterol/HDL Ratio 2.97 Ratio Intake and Output 09/09/24 09/09/24 09/09/24 06:59 14:59 22:59 Other: Voiding Method Toilet # Voids 2 3 09/08/24 12:13 09/08/24 12:13
[2024-09-10 02:01] LABS: Magnesium 2.1 mg/dL (1.5-2.4)
== END 2024-09-09 16:15 | disposition home or self-care (01) ==
LOC: EC 11:31 → 6NMEDSUR 14:06
PROVIDERS: ADMIT Hospitalist; ATTEND Hospitalist
DX: R07.89 Other chest pain (principal); I10 Essential (primary) hypertension; F41.9 Anxiety disorder, unspecified; E78.5 Hyperlipidemia, unspecified; R25.2 Cramp and spasm; Z79.82 Long term (current) use of aspirin; Z79.899 Other long term (current) drug therapy; Z88.2 Allergy status to sulfonamides; Z82.49 Family history of ischemic heart disease and other diseases of the circulatory system
CPT/HCPCS: 99285; 36415; 93005; 84439; 83880; 80061; 80053; 84443; 83735 ×2; 84484; 85025; 85610; 85730; 81003; 83036; 71046; G0378 ×2

== ENCOUNTER 2024-09-12 19:35 | Emergency (ER) | payer MEDICARE, OTHER ==
--- NOTE | 2024-09-12 20:14 | ED ---
General Adult HPI - General Source: patient Mode of arrival: ambulatory Limitations: no limitations <Jacinda Mancia - Last Filed: 09/12/24 20:12> - General Source: patient, RN notes reviewed, old records reviewed Mode of arrival: ambulatory Limitations: no limitations - History of Present Illness -: days(s) Location: left, lower extremity Radiation: abdomen Severity scale (1-10): 7 Quality: sharp Consistency: constant Improves with: none Worsens with: none Associated Symptoms: denies other symptoms Treatments Prior to Arrival: none <Guru Richardson - Last Filed: 09/13/24 03:32> - General Chief complaint: Extremity Problem,Nontraumatic Stated complaint: Leg Cramps,Weakness Time Seen by Provider: 09/12/24 20:00 - History of Present Illness Initial comments: Quick note: 73-year-old female presents to the emergency department for evaluation of bilateral leg cramps and hand cramps. She notes starting new medication. (Jacinda Mancia) This is a 73 female to the ER for evaluation of multiple complaints, no recent new medications with recent inpatient hospitalization. Patient is having hand pain hand cramps leg pain leg cramps significant left lower extremity swelling and edema (Guru Richardson) - Related Data Home Medications Medication Instructions Recorded Confirmed Aspirin EC [Ecotrin Low Dose] 81 mg PO DAILY 09/08/24 09/08/24 Atorvastatin [Lipitor] 20 mg PO HS 09/08/24 09/08/24 Brimonidine Tartrate [Alphagan P 1 drop BOTH EYES BID 09/08/24 09/08/24 0.2% Ophth Soln] Cyclobenzaprine [Flexeril] 10 mg PO DIRECTED PRN 09/08/24 09/08/24 Fluticasone Nasal [place] [Flonase 2 spray EA NOSTRIL BID PRN 09/08/24 09/08/24 Nasal [place]] Levothyroxine Sodium [Synthroid] 175 mcg PO DAILY 09/08/24 09/08/24 Linaclotide [Linzess] 72 mcg PO DIRECTED 09/08/24 09/08/24 Lurasidone [Latuda] 40 mg PO HS 09/08/24 09/08/24 Magnesium Oxide [Mag-Ox] 400 mg PO DAILY 09/08/24 09/08/24 Multivit-Min/FA/Lycopen/Lutein 1 tab PO DAILY 09/08/24 09/08/24 [Centrum Silver Tablet] NIFEdipine XL [Procardia XL] 30 mg PO DAILY 09/08/24 09/08/24 Topiramate 200 mg PO BID 09/08/24 09/08/24 clonazePAM 2 mg PO HS 09/08/24 09/08/24 Allergies Allergy/AdvReac Type Severity Reaction Status Date / Time Sulfa (Sulfonamide AdvReac Rash/Hives Verified 09/12/24 19:59 Antibiotics) Review of Systems ROS Other: All systems not noted in ROS Statement are negative. <Jacinda Mancia - Last Filed: 09/12/24 20:12> ROS Other: All systems not noted in ROS Statement are negative. <Guru Richardson - Last Filed: 09/13/24 03:32> ROS Statement: Those systems with pertinent positive or pertinent negative responses have been documented in the HPI. Past Medical History Past Medical History: Hypertension History of Any Multi-Drug Resistant Organisms: None Reported Past Surgical History: Orthopedic Surgery Past Anesthesia/Blood Transfusion Reactions: No Reported Reaction Past Psychological History: Anxiety Smoking Status: Never smoker Past Alcohol Use History: None Reported Past Drug Use History: None Reported <Jacinda Mancia - Last Filed: 09/12/24 20:12> General Exam Limitations: no limitations <Jacinda Mancia - Last Filed: 09/12/24 20:12> General appearance: alert, in no apparent distress Head exam: Present: atraumatic, normocephalic, normal inspection Eye exam: Present: normal appearance, PERRL, EOMI. Absent: scleral icterus, conjunctival injection, periorbital swelling ENT exam: Present: normal exam, mucous membranes moist Neck exam: Present: normal inspection. Absent: tenderness, meningismus, lymphadenopathy Respiratory exam: Present: normal lung sounds bilaterally. Absent: respiratory distress, wheezes, rales, rhonchi, stridor Cardiovascular Exam: Present: regular rate, normal rhythm, normal heart sounds. Absent: systolic murmur, diastolic murmur, rubs, gallop, clicks GI/Abdominal exam: Present: soft, normal bowel sounds. Absent: distended, tenderness, guarding, rebound, rigid Extremities exam: Present: normal inspection, full ROM, normal capillary refill. Absent: tenderness, pedal edema, joint swelling, calf tenderness Back exam: Present: normal inspection Neurological exam: Present: alert, oriented X3, CN II-XII intact Psychiatric exam: Present: normal affect, normal mood Skin exam: Present: warm, dry, intact, normal color. Absent: rash <Guru Richardson - Last Filed: 09/13/24 03:32> - General Exam Comments Initial Comments: Visual Physical Exam Vital signs reviewed General: Well-appearing, nontoxic, no acute distress. Head: Normocephalic, atraumatic Eyes: PERRLA, EOMI ENT: Airway patent Chest: Nonlabored breathing Skin: No visual rash, normal skin tone Neuro: Alert and oriented 3 Musculoskeletal: No gross abnormalities (Jacinda Mancia) Course <Guru Richardson Delon - Filed: 09/13/24 03:32> Vital Signs 09/12/24 09/12/24 09/13/24 19:59 20:59 00:00 Temperature 97.4 F L 97.5 F L Pulse Rate 65 62 63 Respiratory 18 18 18 Rate Blood Pressure 169/76 147/73 146/72 O2 Sat by Pulse 98 99 98 Oximetry 09/13/24 09/13/24 01:00 02:00 Temperature Pulse Rate 58 L 55 L Respiratory 18 Rate Blood Pressure 125/62 127/69 O2 Sat by Pulse 99 Oximetry - Reevaluation(s) Reevaluation #1: 09/12/24 23:58 Medical records reviewed (Guru Richardson) Reevaluation #4: Was pt. sent in by a medical professional or institution (, PA, MACHINE MARKER, urgent care, hospital, or skilled nursing...) When possible be specific @ -no Did you speak to anyone other than the patient for history (EMS, parent, family, police, friend...)? What history was obtained from this source @ -no Did you review nursing and triage notes (agree or disagree)? Why? @ -agree Are old charts reviewed (outside hosp., previous admission, EMS record, old EKG, old radiological studies, urgent care reports/EKG's, skilled nursing records)? Report findings @ -yes Differential Diagnosis (chest pain, altered mental status, abdominal pain women, abdominal pain men, vaginal bleeding, weakness, fever, dyspnea, syncope, headache, dizziness, GI bleed, back pain, seizure, CVA, palpatations, mental health, musculoskeletal)? @ -prior EKG interpreted by me (3pts min.). @ -yes X-rays interpreted by me (1pt min.). @ -yes negative for acute disease CT interpreted by me (1pt min.). @ -no U/S interpreted by me (1pt. min.). @ -no What testing was considered but not performed or refused? (CT, X-rays, U/S, labs)? Why? @ -none What meds were considered but not given or refused? Why? @ -none Did you discuss the management of the patient with other professionals (professionals i.e. , PA, MACHINE MARKER, lab, RT, psych nurse, administrator social welfare, mineral economist, teacher, nuclear officer, trimming caser)? Give summary @ -no Was smoking cessation discussed for >3mins.? @ -no Was critical care preformed (if so, how long)? @ -no Were there social determinants of health that impacted care today? How? (Homelessness, low income, unemployed, alcoholism, drug addiction, transportation, low edu. Level, literacy, decrease access to med. care, penitentiary, rehab)? @ -none Was there de-escalation of care discussed even if they declined (Discuss DNR or withdrawal of care, Hospice)? DNR status @ -no What co-morbidities impacted this encounter? (DM, HTN, Smoking, COPD, CAD, Cancer, CVA, ARF, Chemo, Hep., AIDS, mental health diagnosis, sleep apnea, morbid obesity)? @ -none Was patient admitted / discharged? Hospital course, mention meds given and route, prescriptions, significant lab abnormalities, going to OR and other pertinent info. @ - Undiagnosed new problem with uncertain prognosis? @ -no Drug Therapy requiring intensive monitoring for toxicity (Heparin, Nitro, Insulin, Cardizem)? @ -no Were any procedures done? @ -no Diagnosis/symptom? @ - Acute, or Chronic, or Acute on Chronic? @ -Acute Uncomplicated (without systemic symptoms) or Complicated (systemic symptoms)? @ -Complicated Side effects of treatment? @ -no Exacerbation, Progression, or Severe Exacerbation? @ -exacerbation Poses a threat to life or bodily function? How? (Chest pain, USA, MT, pneumonia, PE, COPD, DKA, ARF, appy, cholecystitis, CVA, Diverticulitis, Homicidal, Suicidal, threat to staff... and all critical care pts) @ -yes (Guru Richardson) Reevaluation #5: Differential Weakness: Hypoglycemia, shock, sepsis, hyponatremia, anemia, infection, MT, ETOH, adverse medicine reaction, overdose, stroke, this is not meant to be an all-inclusive list. (Guru Richardson) Medical Decision Making <Jacinda Mancia - Last Filed: 09/12/24 20:12> - Lab Data Result diagrams: 09/12/24 21:44 09/12/24 21:44 <Guru Richardson - Last Filed: 09/13/24 03:32> - Medical Decision Making Quick note performed and electronically signed by Jacinda Mancia PA-C (Jacinda Mancia) - Lab Data Lab Results 09/12/24 09/12/24 09/12/24 Range/Units 21:44 21:44 21:44 WBC 8.60 (4.50-10.00) 10*3/uL RBC 3.77 L (4.10-5.20) 10*6/uL Hgb 12.2 (12.0-15.0) g/dL Hct 35.6 L (37.2-46.3) % MCV 94.4 (80.0-97.0) fL MCH 32.4 H (27.0-32.0) pg MCHC 34.3 (32.0-37.0) g/dL Plt Count 180 (140-440) 10*3/uL MPV 10.7 (9.5-12.2) fL Immature Gran % (Auto) 0.2 % Neutrophils % 71.9 % Lymphocytes % 19.2 % Monocytes % 7.0 % Eosinophils % 1.4 % Basophils % 0.3 % Immature Gran # 0.02 (0.00-0.04) 10*3/uL Neutrophils # 6.18 (1.80-7.70) 10*3/uL Lymphocytes # 1.65 (0.90-5.00) 10*3/uL Monocytes # 0.60 (0.20-1.00) 10*3/uL Eosinophils # 0.12 (0.04-0.35) 10*3/uL Basophils # 0.03 (0.00-0.10) 10*3/uL PT 10.9 (10.0-12.5) sec INR 1.0 (<1.2) APTT 25.1 (22.0-30.0) sec D-Dimer (<0.60) mg/L FEU Sodium 140 (137-145) mmol/L Potassium 4.0 (3.5-5.1) mmol/L Chloride 108 H (98-107) mmol/L Carbon Dioxide 21 L (22-30) mmol/L Anion Gap 11 mmol/L BUN 25 H (7-17) mg/dL Creatinine 1.09 H (0.52-1.04) mg/dL Est GFR (CKD-EPI)AfAm 59 (>60 ml/min/1.73 sqM) Est GFR (CKD-EPI)NonAf 51 (>60 ml/min/1.73 sqM) Glucose 99 (74-99) mg/dL Calcium 10.1 (8.4-10.2) mg/dL Phosphorus (2.5-4.5) mg/dL Magnesium 2.2 (1.6-2.3) mg/dL Total Bilirubin 0.5 (0.2-1.3) mg/dL AST 59 H (14-36) U/L ALT 43 H (4-34) U/L Alkaline Phosphatase 70 (38-126) U/L Total Protein 7.6 (6.3-8.2) g/dL Albumin 4.4 (3.5-5.0) g/dL 09/12/24 09/12/24 Range/Units 23:27 23:27 WBC (4.50-10.00) 10*3/uL RBC (4.10-5.20) 10*6/uL Hgb (12.0-15.0) g/dL Hct (37.2-46.3) % MCV (80.0-97.0) fL MCH (27.0-32.0) pg MCHC (32.0-37.0) g/dL Plt Count (140-440) 10*3/uL MPV (9.5-12.2) fL Immature Gran % (Auto) % Neutrophils % % Lymphocytes % % Monocytes % % Eosinophils % % Basophils % % Immature Gran # (0.00-0.04) 10*3/uL Neutrophils # (1.80-7.70) 10*3/uL Lymphocytes # (0.90-5.00) 10*3/uL Monocytes # (0.20-1.00) 10*3/uL Eosinophils # (0.04-0.35) 10*3/uL Basophils # (0.00-0.10) 10*3/uL PT (10.0-12.5) sec INR (<1.2) APTT (22.0-30.0) sec D-Dimer 1.32 H (<0.60) mg/L FEU Sodium (137-145) mmol/L Potassium (3.5-5.1) mmol/L Chloride (98-107) mmol/L Carbon Dioxide (22-30) mmol/L Anion Gap mmol/L BUN (7-17) mg/dL Creatinine (0.52-1.04) mg/dL Est GFR (CKD-EPI)AfAm (>60 ml/min/1.73 sqM) Est GFR (CKD-EPI)NonAf (>60 ml/min/1.73 sqM) Glucose (74-99) mg/dL Calcium (8.4-10.2) mg/dL Phosphorus 4.0 (2.5-4.5) mg/dL Magnesium (1.6-2.3) mg/dL Total Bilirubin (0.2-1.3) mg/dL AST (14-36) U/L ALT (4-34) U/L Alkaline Phosphatase (38-126) U/L Total Protein (6.3-8.2) g/dL Albumin (3.5-5.0) g/dL Disposition <Jacinda Mancia - Last Filed: 09/12/24 20:12> Is patient prescribed a controlled substance at d/c from ED?: No Time of Disposition: 03:30 <Guru Richardson - Last Filed: 09/13/24 03:32> Clinical Impression: Leg cramps, Paresthesia, Leg edema, left Disposition: HOME SELF-CARE Condition: Good Instructions (If sedation given, give patient instructions): Paresthesia (ED), Leg Edema (ED) Referrals: Darrel Rios [Primary Care Provider] - 1-2 days
[2024-09-12 20:59] VITALS: TEMP 97.5
[2024-09-12 22:23] LABS: Basophils # (A) 0.03 10*3/uL (0.00-0.10); Basophils % (A) 0.3 %; Eosinophils # (A) 0.12 10*3/uL (0.04-0.35); Eosinophils % (A) 1.4 %; HCT 35.6 % (37.2-46.3); HGB 12.2 g/dL (12.0-15.0); Lymphocytes # (A) 1.65 10*3/uL (0.90-5.00); Lymphocytes % (A) 19.2 %; MCH 32.4 pg (27.0-32.0); MCHC 34.3 g/dL (32.0-37.0); MCV 94.4 fL (80.0-97.0); Mean Platelet Volume 10.7 fL (9.5-12.2); Neutrophils # (A) 6.18 10*3/uL (1.80-7.70); Neutrophils % (A) 71.9 %; Platelet Count 180 10*3/uL (140-440); RBC 3.77 10*6/uL (4.10-5.20); RDW 12.1 % (11.5-14.5)
[2024-09-12 22:35] LABS: Partial Thromboplastin Time 25.1 sec (22.0-30.0); Prothrombin Time 10.9 sec (10.0-12.5)
[2024-09-12 22:40] LABS: ALT 43 U/L (4-34); AST 59 U/L (14-36); African American GFR (CKD) 59 (>60 ml/min/1.73 sqM); Albumin 4.4 g/dL (3.5-5.0); Alkaline Phosphatase 70 U/L (38-126); Anion Gap 11 mmol/L; Blood Urea Nitrogen 25 mg/dL (7-17); Calcium 10.1 mg/dL (8.4-10.2); Carbon Dioxide 21 mmol/L (22-30); Chloride 108 mmol/L (98-107); Glucose 99 mg/dL (74-99); Magnesium 2.2 mg/dL (1.6-2.3); Non-African American GFR(CKD) 51 (>60 ml/min/1.73 sqM); Sodium 140 mmol/L (137-145); Total Bilirubin 0.5 mg/dL (0.2-1.3); Total Protein 7.6 g/dL (6.3-8.2)
--- NOTE | 2024-09-13 02:50 | US ---
EXAM: US Duplex Left Lower Extremity Veins CLINICAL HISTORY: ITS.REASON US Reason: dvt Female, 73 years old with history of dvt; patient states hx of dvt in right leg. leg cramping. not on thinners, Pain TECHNIQUE: Real-time duplex ultrasound scan of the left lower extremity veins integrating B-mode two-dimensional vascular structure, Doppler spectral analysis, color flow Doppler imaging and compression. COMPARISON: US Duplex Lower Extremity Veins dated 09/07/2024 ultrasound venous Doppler duplex bilateral lower extremities FINDINGS: Deep veins: Unremarkable. No DVT in the visualized common femoral, femoral, proximal deep femoral or popliteal veins. The veins demonstrate normal color flow, are normally compressible, with normal phasic flow and/or augmentation response. Superficial veins: Unremarkable. No thrombus in the visualized great saphenous vein. Soft tissues: No acute findings. No popliteal cyst. IMPRESSION: No DVT in the left lower extremity
[2024-09-13 04:24] VITALS: BP 149/73; PULSE 67; RESP 16
== END 2024-09-13 04:39 | disposition home or self-care (01) ==
LOC: EC 19:35
DX: R25.2 Cramp and spasm (principal); R60.0 Localized edema; R20.2 Paresthesia of skin; Z88.2 Allergy status to sulfonamides
CPT/HCPCS: 36415; 80053; 83735; 84100; 85025; 85379; 85610; 85730; 99284